=== PATIENT | female | born 1945 | race Caucasian/White ===

== ENCOUNTER 2020-11-21 12:33 | Outpatient (RCR) | payer MEDICARE, SELFPAY ==
[2013-10-21 09:41] VITALS: BMI 42.0
[2020-11-21] MEDS: COVID-19 VACC, MRNA(PFIZER)/PF 30 MCG/0.3 ML SYRINGE IM (18:19)
[2020-12-12] MEDS: COVID-19 VACC, MRNA(PFIZER)/PF 30 MCG/0.3 ML SYRINGE IM (17:48)
== END 2021-02-20 23:59 ==
LOC: IMMUN 12:33
PROVIDERS: PCP Family Medicine; Visit Provider Family Medicine
DX: Z23 Encounter for immunization (principal)
CPT/HCPCS: 0001A; 0002A; 91300

== ENCOUNTER 2024-12-18 13:05 | Inpatient (IN) | payer MEDICARE, SELFPAY ==
[2024-12-18 13:59] VITALS: BP 134/56; PULSE 66; RESP 18; RESP 20; TEMP 36.7; O2SAT 97; BMI 40.3
--- NOTE | 2024-12-18 14:52 | NURSING ---
Pt arrived via cot at 13:25.
--- NOTE | 2024-12-18 15:18 | HP.PCM_ITS ---
HPI - General General Date of Admission: 12/18/24 Date of Service: 12/20/24 Chief Complaint: Here for rehabilitation. HPI Narrative MAGALI BROOKS, is a 79 Female who presents with followin12/15/2024 Admit [facility] with right knee effusion. Fall 2 days ago, right knee pain, right knee swelling, unable to lift right leg. ESR okay, CRP okay. Ortho, PT/OT for right partial quadriceps tendon rupture. SCD, Apply ice. 12/15/2024 Ortho unable to perform straight leg raise. Concern for possible extensor mechanism rupture. NWB right lower extremity. 12/16/2024 Comfortable in bed, right leg in brace. Ortho recommends conservative management for right partial quadriceps tendon rupture. PT/OT for discharge planning. 12/18/2024 Admit to TCU with debility, here for rehabilitation, strengthening, prior to discharge home with . [facility] Medical History (Updated 12/18/24 @ 15:[address] Tomás Duncan MD) History of endometrial biopsy Vitamin D deficiency Hypothyroidism Stroke Hyperlipidemia, unspecified Essential (primary) hypertension Atrial fibrillation Rupture of right quadriceps tendon Effusion, right knee Debility Home Medications ?Medication ?Instructions ?Recorded ?Last Taken ?Type levothyroxine 88 mcg tablet 88 mcg PO DAILY Thyroid Unknown History lisinopril 40 mg tablet 40 mg PO DAILY Blood pressur e 08/30/13 Unknown History pravastatin 80 mg tablet 80 mg PO QHS Cholesterol Unknown History sotalol 120 mg tablet (Betapace) 120 mg PO BID HEART 1 10/31/12 Unknown History hydralazine 25 mg tablet 25 mg PO BID HEART 12/18/24 Unknown History oxycodone 5 mg capsule 5 mg PO Q6H PAIN 12/18/24 Un known History rivaroxaban 20 mg tablet (Xarelto) 20 mg PO QPM HEART 12/18/24 Unknown History Allergy/AdvReac Type Severity Reaction Status Date / Time Penicillins Allergy Hives Verified 10/21/13 09:43 Family History (Updated 12/18/24 @ 15:[address] Tomás Duncan MD) Father Cancer Surgical History (Updated 12/18/24 @ 15:[address] Tomás Duncan MD) History of tubal ligation History of total abdominal hysterectomy and bilateral salpingo-oophorectomy History of dilatation and curettage History of removal of cyst History of colonoscopy History of cholecystectomy Social History (Updated 12/18/24 @ 15:[address] Tomás Duncan MD) household members: spouse Smoking Status: Never smoker alcohol intake: never substance use type: does not use ROS Constitutional Constitutional: Reports weakness; Denies chills, fever(s) or weight gain ENT HEENT: Denies headache(s), nasal congestion or nasal discharge Cardiovascular Cardiovascular: Denies chest pain or palpitations Respiratory/Chest Respiratory/Chest: Denies cough, excessive phlegm production or shortness of breath with exertion Gastrointestinal Gastrointestinal: Denies abdominal pain, nausea or vomiting Genitourinary Genitourinary: Denies dysuria Musculoskeletal Musculoskeletal: Reports joint pain and other Details: Right knee pain. ; Denies joint swelling Integumentary Integumentary: Denies rash or wounds Neurologic Neurologic: Denies focal weakness, numbness or tingling Psychiatric Psychiatric: Denies anxiety, auditory hallucinations, depression, homicidal ideation or suicidal ideation Vital Signs Vital Signs Vital Signs: 12/18/24 13:59 12/18/24 13:59 Temperature 98.0 F Temperature Source Temporal Pulse Rate 66 66 Pulse Rhythm Regular Pulse Strength Normal (2+) Respiratory Rate 20 H 18 Respiratory Effort Normal Non-Labored Respiratory Depth Normal Respiratory Pattern Normal Blood Pressure 134/56 H Blood Pressure Mean 82 Blood Pressure Source Monitor Blood Pressure Position Sitting Blood Pressure Location Left Arm Pulse Ox 97 97 Oxygen Delivery Method Room Air Room Air Weight Weight: 93.667 kg Body Mass Index (BMI) 40.3 Physical Exam Const alert General Appearance: cooperative HEENT normocephalic Eyes PERRL and EOMs intact bilaterally Neck supple, no JVD and no carotid bruits Resp normal respiratory effort, normal air movement and clear to auscultation bilaterally Cardio regular rate and regular rhythm GI normal to inspection, nondistended, normoactive bowel sounds, non-tender and non-distended Extremity normal capillary refill Extremity Narrative: Right knee immobilizer. General Extremity: Negative for edema Skin no rashes or lesions noted General Skin Exam: no breakdown Psych affect normal Appearance: appropriate Results Lab / Micro Data 12/19/24 08:44 12/19/24 08:44 Assessment & Plan Assessment/Plan (1) Debility: (2) Effusion, right knee: (3) Rupture of right quadriceps tendon: (4) Atrial fibrillation: (5) Essential (primary) hypertension: (6) Hyperlipidemia, unspecified: (7) Stroke: (8) Hypothyroidism: (9) Vitamin D deficiency: PLAN: Plan 79 year old female with below past medical history hospitalized for right knee pain, right knee effusion, right partial quadriceps tendon rupture, treated non- surgically, admitted to TCU with debility, here for rehabiltation, strengthening, prior to discharge home with . * Debility - PT/OT. * Pain - Tylenol 1000mg q8, Tramadol 50mg q6 prn pain (1-5), Oxycodone 5mg q4 prn pain (6-10). * Bowel - senna/colace 2 tablets bid, Magnesium citrate 300mL po daily prn. * Adult immunization - Administer pneumonia vaccine, covid vaccine, flu vaccine as appropriate. * DVT prophylaxis - on Xarelto. * Hypertension - Sotalol 120mg bid, Lisinopril 40mg daily, Hydralazine 25mg bid. * Atrial fibrillation - Sotalol 120mg bid, Xarelto 20mg daily. * Hypothyroidism - Levothyroxine 88mcg daily. * Hyperlipidemia - Pravastatin 80mg qhs. * Bacterial vaginosis - Foul fishy vaginal odor, Flagyl 500mg po bid x 7 days.
[2024-12-18] MEDS: Acetaminophen 500 MG Tablet 1000 MG PO ×2 (15:55→21:45)
[2024-12-18] MEDS: Senna/Docusate Sodium 1 Tablet 2 TABLET PO (15:55)
[2024-12-18] MEDS: Rivaroxaban 20 MG Tablet PO (16:29)
[2024-12-18 21:44] VITALS: BP 119/56; PULSE 72
[2024-12-18] MEDS: hydrALAZINE 25 MG Tablet PO (21:44)
[2024-12-18] MEDS: Pravastatin 80 MG Tablet PO (21:45)
[2024-12-18] MEDS: Sotalol Hydrochloride 80 MG Tablet 120 MG PO (21:45)
[2024-12-19] MEDS: Levothyroxine 88 MCG Tablet PO (05:41)
[2024-12-19] MEDS: Acetaminophen 500 MG Tablet 1000 MG PO ×3 (05:41→21:19)
[2024-12-19 08:55] LABS: Absolute Lymphocyte Count 1.65 X10^3/uL (0.83-4.51); Basophil# 0.03 X10^3/uL; Basophil% 0.5 % (0-1); Eosinophil# 0.04 X10^3/uL; Eosinophils% 0.6 % (0-5); Hematocrit 42.4 % (37-47); Hemoglobin 13.5 g/dL (12.0-15.0); Lymphocyte # 1.65 X10^3/ul (0.83-4.51); Lymphocyte % 26.7 % (19-41); Mean Corp Hgb Conc 31.8 g/dL (32-36); Mean Corpuscular Hgb 29.6 pg (27.0-32.0); Mean Platelet Vol. 9.9 fl (6.2-12.0); Monocyte# 0.44 X10^3/uL; Monocyte% 7.1 % (0-10); NRBC Flagged by Analyzer 0 % (0-5); Neutrophil # 3.97 X10^3/uL (2.7-7.7); Neutrophil % 64.3 % (47-70); Platelet Count 175 K/mm3 (150-450); RBC Distribution Width CV 14.5 % (11.6-14.6); RBC Distribution Width SD 49.3 fl (35.1-43.9); Red Blood Count 4.56 M/mm3 (4.2-5.4); White Blood Count 6.2 K/mm3 (4.4-11.0)
[2024-12-19 09:23] LABS: Anion Gap 10 (5-15); BUN 33 mg/dL (4-19); BUN/Creat Ratio 32.8 RATIO (10-20); Carbon Dioxide 20.6 mmol/L (21.0-32.0); Chloride 107 mmol/L (98-108); Creatinine, Serum 0.99 mg/dL (0.70-1.20); EST Glomerular Filtration Rate 58 (>60); Estimated Creatinine Clearance 47.88 ml/min (50-250); Glucose 131 mg/dL (70-99); Potassium 4.1 mmol/L (3.3-5.1); Sodium Level 138 mmol/L (133-145)
[2024-12-19 09:25] VITALS: BP 142/51; PULSE 70
[2024-12-19] MEDS: hydrALAZINE 25 MG Tablet PO ×2 (09:25→21:19)
[2024-12-19] MEDS: Sotalol Hydrochloride 80 MG Tablet 120 MG PO ×2 (09:26→21:19)
[2024-12-19] MEDS: Lisinopril 40 MG Tablet PO (09:27)
[2024-12-19] MEDS: Tuberculin,Purif.prot.deriv. 50 TU/ML Vial 0.1 ML ID (09:36)
[2024-12-19 09:42] VITALS: BP 142/51; PULSE 70; RESP 18; TEMP 36.1; O2SAT 98
[2024-12-19] MEDS: Rivaroxaban 20 MG Tablet PO (16:57)
--- NOTE | 2024-12-19 18:52 | NURSING ---
PT DAUGHTERS GAVE MONEY FOR PT TO HAVE HER HAIR DONE ON FRIDAY. DAUGHTERS DIDNT WANT PT TO KNOW TILL THAT TIME. WANTED IT FOR A SURPRISE FOR THERE MOM. MONEY IS IN MED BOX.
[2024-12-19 21:17] VITALS: BP 141/56; PULSE 74; RESP 16; O2SAT 97
[2024-12-19 21:19] VITALS: BP 141/56; PULSE 74
[2024-12-19] MEDS: Pravastatin 80 MG Tablet PO (21:19)
[2024-12-20] MEDS: Acetaminophen 500 MG Tablet 1000 MG PO ×3 (05:25→21:25)
[2024-12-20] MEDS: Levothyroxine 88 MCG Tablet PO (05:25)
[2024-12-20] MEDS: metroNIDAZOLE 500 MG Tablet PO ×2 (08:57→21:24)
[2024-12-20] MEDS: Sotalol Hydrochloride 80 MG Tablet 120 MG PO ×2 (08:57→21:23)
[2024-12-20] MEDS: Lisinopril 40 MG Tablet PO (08:58)
[2024-12-20 08:59] VITALS: BP 127/65; PULSE 75
[2024-12-20] MEDS: Senna/Docusate Sodium 1 Tablet 2 TABLET PO (08:59)
[2024-12-20] MEDS: hydrALAZINE 25 MG Tablet PO ×2 (08:59→21:22)
[2024-12-20 09:04] VITALS: BP 127/65; PULSE 75; RESP 16; TEMP 36.4; O2SAT 98
--- NOTE | 2024-12-20 09:20 | NURSING ---
Offered covid vaccine, VIS provided. Resident declines at this time.
--- NOTE | 2024-12-20 10:38 | PCM.PN.DRR ---
Documented by User: Sheyla Winters 12/20/24 10:54 TCU RX Drug Regimen Review Subjective/Objective Subjective/Objective Subjective: TCU Admission. 79 YOF presented to outside ER with right knee effusion. Hospitalized for right knee pain, right knee effusion, right partial quadriceps tendon rupture, treated non-surgically. Admitted to TCU with debility for strengthening and rehabilitation. Objective: Allergies Penicillins Allergy (Verified 10/21/13 09:43) Hives Current Medications Generic Name Dose Route Start Last Admin Trade Name Freq PRN Reason Stop Dose Admin Acetaminophen 1,000 mg 12/18/24 15:30 12/20/24 05:25 Acetaminophen 500 Mg Tablet PO 1,000 mg Q8 MEREDITH Administration Hydralazine HCl 25 mg 12/18/24 22:00 12/20/24 08:59 Hydralazine 25 Mg Tablet PO 25 mg BID MEREDITH Administration Protocol Levothyroxine Sodium 88 mcg 12/19/24 06:00 12/20/24 05:25 Levothyroxine 88 Mcg Tablet PO 88 mcg DAILY@0600 MEREDITH Administration Lisinopril 40 mg 12/19/24 10:00 12/20/24 08:58 Lisinopril 40 Mg Tablet PO 40 mg DAILY MEREDITH Administration Protocol Magnesium Citrate 300 ml 12/18/24 15:28 Magnesium Citrate 300 Ml PO DAILY PRN Constipation Metronidazole 500 mg 12/20/24 10:00 12/20/24 08:57 Metronidazole 500 Mg Tablet PO 12/27/24 10:01 500 mg BID MEREDITH Administration Oxycodone HCl 5 mg 12/18/24 15:28 Oxycodone 5 Mg Tablet PO Q4H PRN PRN Pain Score 6-10 or Pre PT/OT Pravastatin Sodium 80 mg 12/18/24 22:00 12/19/24 21:19 Pravastatin 80 Mg Tablet PO 80 mg QHS MEREDITH Administration Rivaroxaban 20 mg 12/18/24 17:00 12/19/24 16:57 Rivaroxaban 20 Mg Tablet PO 20 mg DINNER MEREDITH Administration Senna/Docusate Sodium 2 tablet 12/18/24 15:30 12/20/24 08:59 Senna/Docusate Sodium 1 Tablet PO 2 tablet BID MEREDITH Administration Sodium Chloride 10 - 40 ml 12/18/24 14:34 0.9% Saline Lock 10 Ml Syringe IV UD PRN SALINE FLUSH Sotalol HCl 120 mg 12/18/24 22:00 12/20/24 08:57 Sotalol Hydrochloride 80 Mg Tablet PO 120 mg BID MEREDITH Administration Tramadol HCl 50 mg 12/18/24 15:27 Tramadol 50 Mg Tablet PO Q6H PRN PRN Pain Score 1-5 Tuberculin PPD 0.1 ml 12/26/24 10:00 Tuberculin,Purif.Prot.Deriv. 50 Tu/Ml Vial ID 12/26/24 10:01 X1 ONE Problem List (Updated 12/18/24 @ 15:[address] Tomás Duncan MD) Vitamin D deficiency (Acute) Hypothyroidism (Acute) Stroke (Acute) Hyperlipidemia, unspecified (Acute) Essential (primary) hypertension (Acute) Atrial fibrillation (Acute) Rupture of right quadriceps tendon (Acute) Effusion, right knee (Acute) Debility (Acute) Vital Signs Temp Pulse Resp BP Pulse Ox O2 Del Method 97.6 F L 75 16 127/65 H 98 Room Air 12/20/24 09:04 12/20/24 09:04 12/20/24 09:04 12/20/24 09:04 12/20/24 09:04 12/20/24 09:04 Oxygen Delivery Method Room Air Weight: 93.7 kg Body Mass Index (BMI) 40.3 Sodium 138 mmol/L (133-145) 12/19/24 08:44 Potassium 4.1 mmol/L (3.3-5.1) 12/19/24 08:44 Chloride 107 mmol/L (98-108) 12/19/24 08:44 Carbon Dioxide 20.6 mmol/L (21.0-32.0) L 12/19/24 08:44 Anion Gap 10 (5-15) 12/19/24 08:44 BUN 33 mg/dL (4-19) H 12/19/24 08:44 Creatinine 0.99 mg/dL (0.70-1.20) 12/19/24 08:44 Est GFR (MDRD) Non-Af 58 (>60) L 12/19/24 08:44 BUN/Creatinine Ratio 32.8 RATIO (10-20) H 12/19/24 08:44 Glucose 131 mg/dL (70-99) H 12/19/24 08:44 Assessment/Plan: 1. Pain: acetaminophen 1000mg PO Q8, tramadol 50mg PO Q6H PRN pain 1-5 and oxycodone 5mg PO Q4H PRn pain 6-10. Resident has not had any PRN doses. Please continue to monitor for PRN usage and increased pain. 2. Bowel: senna/docusate 2T PO BID and magnesium citrate 300mL PO daily PRN constipation. No PRN doses given. Please continue to monitor for PRN usage and constipation. Last documented bowel movement was 12/17/24. 3. Hypertension/atrial fibrillation: sotalol 120mg PO BID, lisinopril 40mg PO daily, hydralazine 25mg PO BID and rivaroxaban 15mg PO dinner (dose changed per policy due to CrCl 47mL/min). Please continue to monitor for S/S of bleeding/stroke, BP (last 127/65), HR (last 75), renal function, cough, potassium (last 4.1mmol/L). 4. Hypothyroidism: levothyroxine 88mcg PO daily. Please consider ordering a TSH as the last in the chart is from 2012. Thanks. Please continue to monitor for S/S of hypothyroidism. 5. Hyperlipidemia: pravastatin 80mg PO QHS. Please consider ordering a lipid panel and LFTs as the last are from 2012. Thanks. Please continue to monitor for muscle pain. 6. Bacterial vaginosis: metronidazole 500mg PO BID thru 12/27/24. Please continue to monitor for improvement in symptoms, metallic taste and GI side effects. Assessment/Plan for indications treated with psychotropic medications: None Medical chart and medication regimen reviewed. The following medication irregularities or issues were identified: 1. Levothyroxine 88mcg PO daily. Please consider ordering a TSH as the last in the chart is from 2012. Thanks. 2. Pravastatin 80mg PO QHS. Please consider ordering a lipid panel and LFTs as the last are from 2012. Thanks. Date Date of Note: 12/20/24 Documented by User: Dr. Tomás Duncan MD 12/20/24 12:36 TCU RX Drug Regimen Review Provider Comments Provider responsibility Provider Comments to Recommendations by Pharmacy Agree
--- NOTE | 2024-12-20 10:47 | NURSING ---
Addendum entered by Sarah Nash 12/20/24 13:27: Call back from office, ok to remove immobilizer and shower. Follow-up scheduled for 12/31/24 at 1045. Resident believes family will be able to transport. Addendum entered by Sarah Nash 12/20/24 10:50: Updated resident. Original Note: Left VM with Dr. Vaughan's office about follow-up appt and ability to shower. Await return call.
--- NOTE | 2024-12-20 16:07 | CASEMGMT ---
Social Work SW met with pt and completed initial assessment. Contacts were verified. Pt confirmed code status as full code. Pt has a HCPOA naming her dgt [place]. SW requested copy be brought to the hosptial. Pt does not have a living will and is not interested in information at this time. SW educated pt to [facility] benefit and that NRD is 4/10 and continued stay is not guaranteed. Pt goal is to return home alone and back to independence at discharge. KEN will continue to follow for dc planning. NIURKA Ingram
[2024-12-20] MEDS: Rivaroxaban 15 MG Tablet PO (16:40)
[2024-12-20 21:17] VITALS: BP 155/71; PULSE 72
[2024-12-20 21:22] VITALS: BP 155/71; PULSE 72
[2024-12-20] MEDS: Pravastatin 80 MG Tablet PO (21:25)
[2024-12-21] VITALS (7 sets, daily range): BP systolic 118–141; BP diastolic 60–68; PULSE 68–78; RESP 16–17; TEMP 36.6–36.8; O2SAT 96–97; BMI 40.7
[2024-12-21] MEDS: Acetaminophen 500 MG Tablet 1000 MG PO ×3 (05:36→21:02)
[2024-12-21] MEDS: Levothyroxine 88 MCG Tablet PO (05:36)
[2024-12-21] MEDS: Senna/Docusate Sodium 1 Tablet 2 TABLET PO (09:25)
[2024-12-21] MEDS: Sotalol Hydrochloride 80 MG Tablet 120 MG PO ×2 (09:26→21:00)
[2024-12-21] MEDS: hydrALAZINE 25 MG Tablet PO ×2 (09:27→21:01)
[2024-12-21] MEDS: metroNIDAZOLE 500 MG Tablet PO ×2 (09:28→21:01)
[2024-12-21] MEDS: Lisinopril 40 MG Tablet PO (09:29)
[2024-12-21 12:00] LABS: Cholesterol 194 mg/dL (<=200); High Density Lipoprotein 62 mg/dL; Low Density Lipoprotein Calc. 95 mg/dL; Triglycerides 187 mg/dL; Very Low Density Lipoprotein 37 mg/dL (5-40); cholesterol:hdl ratio screen 3.14
--- NOTE | 2024-12-21 15:39 | CHAPLAIN ---
Type of Pastoral Visit ___ Initial Visit ___ Follow-up Visit ___ On-call Visit ___ General Patient Visit ___ Spiritual Assessment ___ Family Conference ___ Bereavement ___ Rapid Response ___ Code Blue ___ Other (describe below) Pastoral Care Referral From ___ Patient ___ Family ___ Nurse ___ Physician ___ Yarn Tester ___ [place]ak Worker ___ Other (describe below) Sacrament/Intervention ___ Active listening ___ Anointing ___ Confucianist ___ Bereavement ___ Communion ___ Ofelia exploration ___ ___ Life review ___ Prayer ___ Reconciliation ___ Sacrament of Sick ___ Supportive presence ___ Wedding ___ Other (describe below) Pastoral Comments patient has visitors so this was a brief encounter; pt states that she is improving and has new freedoms to walk around in her room which she is grateful; offer of another day to visit later
[2024-12-21] MEDS: Rivaroxaban 15 MG Tablet PO (17:34)
[2024-12-21] MEDS: Pravastatin 80 MG Tablet PO (21:02)
[2024-12-21] MEDS: MELATONIN 3 MG TABLET PO (21:09)
[2024-12-22] MEDS: Levothyroxine 88 MCG Tablet PO (05:46)
[2024-12-22] MEDS: Acetaminophen 500 MG Tablet 1000 MG PO ×3 (05:46→22:15)
[2024-12-22 09:31] VITALS: BP 111/75; PULSE 77
[2024-12-22] MEDS: hydrALAZINE 25 MG Tablet PO ×2 (09:31→22:15)
[2024-12-22] MEDS: metroNIDAZOLE 500 MG Tablet PO ×2 (09:32→22:15)
[2024-12-22] MEDS: Sotalol Hydrochloride 80 MG Tablet 120 MG PO ×2 (09:32→22:15)
[2024-12-22] MEDS: Lisinopril 40 MG Tablet PO (09:33)
[2024-12-22 09:38] VITALS: BP 111/75; PULSE 77; RESP 18; TEMP 36.1; O2SAT 97
--- NOTE | 2024-12-22 10:20 | CASEMGMT ---
Social Work IDT met with patient, dtr at bedside and other dtr via conference call for care plan meeting. Discussed patient's progress in PT/OT/SN. Educated to [facility] insurance with NRD 12/23 and continued stay is not guaranteed with each review. [facility] is requesting DC plans are in place at NRD for possible LCD. Provided pt/family with written communication of insurance process and copay coverage during stay. Pt is adlib after morning ADLs w/FWW. SW inquired about DC plans as EDC would be 12/26. Family expressed concern with pt being able to complete entry steps, LE care and tx. Therapy reported pt can complete 6 steps, use AE for LE care and is independent with tx. SW discussed resources in the home and DME needs. Pt will need a FWW and 3-in-1 commode. SW provided resources for life alert, home delivered meals and grab bars. Educated to skilled HHC at DC to assist with home set up modifications/recommendations and transition home. Then pt can transition to OP therapy, if elected. Accounts Adjustable Clerk nd dtr's agreeable and appreciative to suggestions. Pt has not used HHC prior. SW to provide list of options. SW educated HHC agency will contact pt for SOC date date, but typically 2-3 days after DC, pending PCP signing orders. Pt/dtrs expressed understanding. SW to notify pt with outcome of insurance update. SW will continue to follow for DC planning. Vangie Mayberry CERTIFIED ACTIVITIES DIRECTOR HYGIENE TEACHER
[2024-12-22] MEDS: Rivaroxaban 15 MG Tablet PO (16:54)
[2024-12-22 22:12] VITALS: BP 151/68; PULSE 71; RESP 16; O2SAT 98
[2024-12-22 22:15] VITALS: BP 151/68; PULSE 71
[2024-12-22] MEDS: MELATONIN 3 MG TABLET PO (22:15)
[2024-12-22] MEDS: Pravastatin 80 MG Tablet PO (22:16)
[2024-12-23] MEDS: Levothyroxine 88 MCG Tablet PO (05:23)
[2024-12-23] MEDS: Acetaminophen 500 MG Tablet 1000 MG PO ×3 (05:24→20:46)
[2024-12-23 09:04] VITALS: BP 148/55; PULSE 87
[2024-12-23] MEDS: hydrALAZINE 25 MG Tablet PO ×2 (09:04→20:47)
[2024-12-23] MEDS: Lisinopril 40 MG Tablet PO (09:05)
[2024-12-23] MEDS: metroNIDAZOLE 500 MG Tablet PO ×2 (09:05→20:46)
[2024-12-23] MEDS: Sotalol Hydrochloride 80 MG Tablet 120 MG PO ×2 (09:05→20:46)
[2024-12-23] MEDS: Senna/Docusate Sodium 1 Tablet 2 TABLET PO (09:05)
[2024-12-23] MEDS: traMADol 50 MG Tablet PO (09:10)
[2024-12-23 09:12] VITALS: BP 148/55; PULSE 87; RESP 18; TEMP 36.1; O2SAT 98
--- NOTE | 2024-12-23 09:19 | NURSING ---
PT COMPLAINING OF DRY,BLOODY NOSE. PT STATED SHE USES NOSE SPRAY AT HOME. LEFT NOTE FOR FOR NOSE SPRAY.
--- NOTE | 2024-12-23 10:54 | CASEMGMT ---
Addendum entered by Vangie Mayberry 12/24/24 13:14: [facility] can accept but for PT and KEEN - there is no OT in the area. Addendum entered by Vangie Mayberry 12/24/24 08:49: Referral sent to [facility] via [employer]. Original Note: Social Work Insurance issued LCD 12/25, DC 12/26. SW provided NOMNC to pt and educated to appeal rights. Pt verbalized understanding and denied appeal. Pt is agreeable to DC. Though, did express some concerns with a car tx, which pt is practicing today with therapy. Pt explained transport can be scheduled, if needed, and HHC will continue working on car tx. SW provided list of skilled HHC agencies within geographical area, INN with insurance, that include quality and resource data via [employer] guide. Pt to review and notify this worker of preference. SW educated HHC agency will contact pt for SOC date date, but typically 2-3 days after DC, pending PCP signing orders. Pt expressed understanding. SW confirmed FWW and 3-in-1 commode. The DME will be delivered to pt's room prior to DC. Pt will have dtr transport home, if the car tx is successful. KEN completed BIMS () and PHQ-2 () for MDS assessment. - KEN referred to [employer] via [employer] for FWW and 3-in-1 commode. Plan: DC home alone 12/26, C PT/OT/KEEN, FWW, 3-in-1 commode Vangie Mayberry OBJECT ORIENTED PROGRAMMER LEGAL NURSE CONSULTANT
--- NOTE | 2024-12-23 12:18 | NURSING ---
Banquet Set Up Person Note; Activity Asset: Laz Powell is independent in her choice of daily activities. She enjoy dominos, quilting, spending time w/mormonism family, reading , tv, music, just hanging out w/others. Family and friends will visit and bring her items she may need or want. Staff will encourage social activities, group and independent activities weekly. Staff will respect her right to say no.
--- NOTE | 2024-12-23 15:53 | CHAPLAIN ---
Type of Pastoral Visit ___ Initial Visit _x__ Follow-up Visit ___ On-call Visit ___ General Patient Visit ___ Spiritual Assessment ___ Family Conference ___ Bereavement ___ Rapid Response ___ Code Blue ___ Other (describe below) Pastoral Care Referral From _x__ Patient ___ Family ___ Nurse ___ Physician ___ Electric Serviceman ___ Practice Assistant ___ Other (describe below) Sacrament/Intervention _x__ Active listening ___ Anointing ___ Catholic ___ Bereavement ___ Communion _x__ Ofelia exploration ___ _x__ Life review _x__ Prayer ___ Reconciliation ___ Sacrament of Sick _x__ Supportive presence ___ Wedding ___ Other (describe below) Pastoral Comments follow up visit after a very brief encounter earlier this week; pt is talkative and shares her feelings about going home this weekend; those feelings include some apprehension about navigating well at home; pt does have family support but knows that they are also busy with lives too; patient also acknowledges that she has had two significant deaths in less than two years with her and a grandson; approached patient with questions of coping and compassion; prayer given
[2024-12-23] MEDS: Rivaroxaban 15 MG Tablet PO (16:51)
--- NOTE | 2024-12-23 19:53 | DS.PCM_ITS ---
Providers Date of Admission: 12/18/24 Primary Care Physician: Dr. Lenin Ramírez DO Reason For Visit: RIGHT PARTIAL TENDON RUPTURE Diagnosis Discharge Diagnosis (1) Debility: Status: Acute Code(s): R53.81 - Other malaise (2) Effusion, right knee: Status: Acute Code(s): M25.461 - Effusion, right knee (3) Rupture of right quadriceps tendon: Status: Acute Code(s): S76.111A - Strain of right quadriceps muscle, fascia and tendon, initial encounter (4) Atrial fibrillation: Status: Acute Code(s): I48.91 - Unspecified atrial fibrillation (5) Essential (primary) hypertension: Status: Acute Code(s): I10 - Essential (primary) hypertension (6) Hyperlipidemia, unspecified: Status: Acute Code(s): E78.5 - Hyperlipidemia, unspecified (7) Stroke: Status: Acute Code(s): I63.9 - Cerebral infarction, unspecified (8) Hypothyroidism: Status: Acute Code(s): E03.9 - Hypothyroidism, unspecified (9) Vitamin D deficiency: Status: Acute Code(s): E55.9 - Vitamin D deficiency, unspecified Plan 79 year old female with below past medical history hospitalized for right knee pain, right knee effusion, right partial quadriceps tendon rupture, treated non- surgically, admitted to TCU with debility, here for rehabiltation, strengthening, prior to discharge home with . * Debility - PT/OT. * Pain - Tylenol 1000mg q8, Tramadol 50mg q6 prn pain (1-5), Oxycodone 5mg q4 prn pain (6-10). * Bowel - senna/colace 2 tablets bid, Magnesium citrate 300mL po daily prn. * Adult immunization - Administer pneumonia vaccine, covid vaccine, flu vaccine as appropriate. * DVT prophylaxis - on Xarelto. * Hypertension - Sotalol 120mg bid, Lisinopril 40mg daily, Hydralazine 25mg bid. * Atrial fibrillation - Sotalol 120mg bid, Xarelto 20mg daily. * Hypothyroidism - Levothyroxine 88mcg daily. * Hyperlipidemia - Pravastatin 80mg qhs. * Bacterial vaginosis - Foul fishy vaginal odor, Flagyl 500mg po bid x 7 days. Medications at Discharge Home Medications levothyroxine 88 mcg tablet 88 mcg PO DAILY Thyroid 08/30/13 lisinopril 40 mg tablet 40 mg PO DAILY Blood pressure 08/30/13 pravastatin 80 mg tablet 80 mg PO QHS Cholesterol 08/30/13 sotalol 120 mg tablet (Betapace) 120 mg PO BID HEART 08/30/13 hydralazine 25 mg tablet 25 mg PO BID HEART 12/18/24 rivaroxaban 20 mg tablet (Xarelto) 20 mg PO QPM HEART 12/18/24 acetaminophen 500 mg tablet 1,000 mg (2 x 500 mg) PO Q8 #0 tabs 12/23/24 melatonin 3 mg tablet 3 mg PO QHS #0 tabs 12/23/24 tramadol 50 mg tablet 50 mg PO Q6H PRN PRN Pain Score 1-5 7 days #28 tabs 12/23/24 Hospital Course Operations None Procedures None Summary of Care Provided Minutes Spent on Discharge: 35 Hospital Course: 79 year old female with below past medical history hospitalized for right knee pain, right knee effusion, right partial quadriceps tendon rupture, treated non- surgically, admitted to TCU with debility, here for rehabiltation, strengthening, prior to discharge home alone. Discharge home alone 12/26/2024, [facility] PT/OT/KEEN, FWW, 3-in-1 commode. FWW: Patient is unsafe to use a cane and requires a walker for ambulation in the home and the community. 3-in-1 commode: a. Patient is confined to a siingle room unable to safely access toilet. b. Patient is confined to one level of the home environment and there is no toilet on that level. Physical Exam Const alert General Appearance: cooperative HEENT normocephalic Eyes PERRL and EOMs intact bilaterally Neck supple, no JVD and no carotid bruits Resp normal respiratory effort, normal air movement and clear to auscultation bilaterally Cardio regular rate and regular rhythm GI normal to inspection, nondistended, normoactive bowel sounds, non-tender and non-distended Extremity normal capillary refill Extremity Narrative: Right knee immobilizer. General Extremity: Negative for edema Skin no rashes or lesions noted General Skin Exam: no breakdown Psych affect normal Appearance: appropriate Weight / BMI Weight Weight: 94.075 kg Body Mass Index (BMI) 40.7 ABG / Lab / Microbiology Data 12/19/24 08:44 12/19/24 08:44 D/C Instructions Discharge Diet: No restrictions Discharge Activity: Return to Normal Activity, May Shower and Use Walker Weight Bearing Status: Weight bearing as tolerated Call your doctor if you observe: Fever of 101 or Higher, Inability to urinate, Inability to have a bowel movement, Shortness of breath, Dizziness, Fainting spells, Swelling in the ankles, Chest pain and Uncontrolled pain DC O2, CPAP, BIPAP Needs Home O2 Discharge instructions: No Additional Instructions: Discharge home alone 12/26/2024, [facility] PT/OT/KEEN, FWW, 3-in-1 commode. FWW: Patient is unsafe to use a cane and requires a walker for ambulation in the home and the community. 3-in-1 commode: a. Patient is confined to a siingle room unable to safely access toilet. b. Patient is confined to one level of the home environment and there is no toilet on that level. Please Follow Up With: Elias Vaughan MD When: As scheduled. Meaningful Use Info Meaningful Use Meaningful Use Diagnoses (Choose all that apply): None applicable Ischemic Stroke Statin Dosing Therapy Reference: STATIN DOSE THERAPY REFERENCE: * Patients > 75 years receive moderate or high dose statin therapy. * Patients 75 years or YOUNGER should receive HIGH intensity statin dose unless contraindicated. You will be required to document reason for non-treatment if statin daily dose does not meet guidelines. HIGH DOSE STATIN THERAPY DAILY Atorvastatin > than or = to 40 mg Rosuvastatin > than or = to 20 mg Amlodipine + Atorvastatin > than or = to 2.5/40 mg Ezetimibe + Simvastatin 10/80 mg Simvastatin 80mg Discharge Plan Admission Admit Date/Time: 12/18/24 13:05 Primary Reason for Your Visit: Debility. Attending Provider: Tomás Duncan Chi Primary Care Provider: Lenin Ramírez Instructions Additional Instructions / Restrictions: Discharge home alone 12/26/2024, [facility] PT/OT/KEEN, FWW, 3-in-1 commode. FWW: Patient is unsafe to use a cane and requires a walker for ambulation in the home and the community. 3-in-1 commode: a. Patient is confined to a siingle room unable to safely access toilet. b. Patient is confined to one level of the home environment and there is no toilet on that level. Discharge Orders/Prescriptions Prescriptions: New acetaminophen 500 mg Tablet 1,000 mg PO Q8 Qty: 0 0RF melatonin 3 mg Tablet 3 mg PO QHS Qty: 0 0RF tramadol 50 mg Tablet 50 mg PO Q6H PRN PRN (Reason: Pain Score 1-5) 7 Days Qty: 28 0RF Continued sotalol [Betapace] 120 MG tablet 120 mg PO BID levothyroxine 88 MCG tablet 88 mcg PO DAILY pravastatin 80 MG tablet 80 mg PO QHS lisinopril 40 MG tablet 40 mg PO DAILY hydralazine 25 mg tablet 25 mg PO BID Xarelto 20 mg tablet 20 mg PO QPM Discontinued oxycodone 5 mg capsule 5 mg PO Q6H Rx Instructions: Take 1 tablet (5mg) by mouth every 6 hours as needed for severe pain (7-10) Referrals / Follow Up: Lenin Ramírez DO [Primary Care Provider] - 12/28/24 10:20 am (Will see JORGE Yoder) Elias Vaughan MD [Non-Staff] - 12/31/24 10:45 am Disposition Disposition (needs filled in before D/C Order can be placed): Home Health Service
[2024-12-23] MEDS: MELATONIN 3 MG TABLET PO (20:46)
[2024-12-23] MEDS: Pravastatin 80 MG Tablet PO (20:46)
[2024-12-23 20:47] VITALS: BP 128/58; PULSE 68
[2024-12-23] MEDS: Sodium Chloride 0.65% 1 SPRAY SPRAY.BTL 2 SPRAY NASAL (20:51)
[2024-12-24] MEDS: Acetaminophen 500 MG Tablet 1000 MG PO ×3 (05:44→22:05)
[2024-12-24] MEDS: Levothyroxine 88 MCG Tablet PO (05:45)
[2024-12-24] MEDS: Lisinopril 40 MG Tablet PO (08:39)
[2024-12-24 08:40] VITALS: BP 106/64; PULSE 65
[2024-12-24] MEDS: hydrALAZINE 25 MG Tablet PO ×2 (08:40→22:06)
[2024-12-24] MEDS: Sotalol Hydrochloride 80 MG Tablet 120 MG PO ×2 (08:41→22:06)
[2024-12-24] MEDS: metroNIDAZOLE 500 MG Tablet PO ×2 (08:41→22:05)
--- NOTE | 2024-12-24 10:03 | MDS.RN ---
Pain assessment for MDS complete.
[2024-12-24 14:52] VITALS: BP 122/49; PULSE 61; RESP 16; TEMP 36.6; O2SAT 98
[2024-12-24] MEDS: Rivaroxaban 15 MG Tablet PO (16:15)
[2024-12-24] MEDS: Pravastatin 80 MG Tablet PO (22:05)
[2024-12-24] MEDS: Senna/Docusate Sodium 1 Tablet 2 TABLET PO (22:05)
[2024-12-24 22:06] VITALS: BP 148/60; PULSE 70
[2024-12-24] MEDS: MELATONIN 3 MG TABLET PO (22:06)
[2024-12-24] MEDS: Sodium Chloride 0.65% 1 SPRAY SPRAY.BTL 2 SPRAY NASAL (22:10)
[2024-12-25] MEDS: Acetaminophen 500 MG Tablet 1000 MG PO ×3 (06:00→22:17)
[2024-12-25] MEDS: Levothyroxine 88 MCG Tablet PO (06:00)
[2024-12-25] MEDS: Senna/Docusate Sodium 1 Tablet 2 TABLET PO (08:41)
[2024-12-25] MEDS: Lisinopril 40 MG Tablet PO (08:41)
[2024-12-25] MEDS: metroNIDAZOLE 500 MG Tablet PO ×2 (08:41→22:18)
[2024-12-25] MEDS: Sotalol Hydrochloride 80 MG Tablet 120 MG PO ×2 (08:41→22:17)
[2024-12-25 08:42] VITALS: BP 114/54; PULSE 71
[2024-12-25] MEDS: hydrALAZINE 25 MG Tablet PO ×2 (08:42→22:17)
[2024-12-25 09:49] VITALS: BP 114/54; PULSE 71; RESP 18; TEMP 36.6; O2SAT 98
[2024-12-25] MEDS: Rivaroxaban 15 MG Tablet PO (17:16)
[2024-12-25 22:17] VITALS: BP 148/76; PULSE 80
[2024-12-25] MEDS: Pravastatin 80 MG Tablet PO (22:17)
[2024-12-25] MEDS: MELATONIN 3 MG TABLET PO (22:18)
[2024-12-26 06:21] LABS: Absolute Lymphocyte Count 2.28 X10^3/uL (0.83-4.51); Absolute Neutrophil Count 3.5 X10^3/uL (2.0-7.7); Basophil# 0.04 X10^3/uL; Basophil% 0.6 % (0-1); Eosinophil# 0.03 X10^3/uL; Eosinophils% 0.4 % (0-5); Hematocrit 38.5 % (37-47); Hemoglobin 12.7 g/dL (12.0-15.0); Lymphocyte # 2.28 X10^3/ul (0.83-4.51); Lymphocyte % 33.5 % (19-41); Mean Corpuscular Volume 90.8 fL (81-99); Mean Platelet Vol. 9.5 fl (6.2-12.0); Monocyte# 0.87 X10^3/uL; Monocyte% 12.8 % (0-10); NRBC Flagged by Analyzer 0 % (0-5); Neutrophil # 3.51 X10^3/uL (2.7-7.7); Neutrophil % 51.7 % (47-70); Platelet Count 162 K/mm3 (150-450); RBC Distribution Width CV 14.7 % (11.6-14.6); RBC Distribution Width SD 49.7 fl (35.1-43.9); Red Blood Count 4.24 M/mm3 (4.2-5.4); White Blood Count 6.8 K/mm3 (4.4-11.0)
[2024-12-26] MEDS: Levothyroxine 88 MCG Tablet PO (06:42)
[2024-12-26] MEDS: Acetaminophen 500 MG Tablet 1000 MG PO (06:42)
[2024-12-26 07:17] LABS: Anion Gap 8 (5-15); BUN 32 mg/dL (4-19); BUN/Creat Ratio 36.6 RATIO (10-20); Calcium,Total 8.8 mg/dL (7.6-11.0); Carbon Dioxide 19.2 mmol/L (21.0-32.0); Chloride 109 mmol/L (98-108); Creatinine, Serum 0.88 mg/dL (0.70-1.20); EST Glomerular Filtration Rate 68 (>60); Estimated Creatinine Clearance 54.01 ml/min (50-250); Glucose 102 mg/dL (70-99); Potassium 4.5 mmol/L (3.3-5.1); Sodium Level 136 mmol/L (133-145)
[2024-12-26] MEDS: metroNIDAZOLE 500 MG Tablet PO (08:30)
[2024-12-26 08:31] VITALS: BP 112/50; PULSE 74
[2024-12-26] MEDS: Sotalol Hydrochloride 80 MG Tablet 120 MG PO (08:31)
[2024-12-26] MEDS: hydrALAZINE 25 MG Tablet PO (08:31)
[2024-12-26] MEDS: Lisinopril 40 MG Tablet PO (08:32)
[2024-12-26 10:04] VITALS: BP 114/63; PULSE 74; RESP 18; TEMP 36.7; O2SAT 98
--- NOTE | 2024-12-29 11:23 | MDS.RN ---
Information for the MDS was obtained from review of the clinical record, interview of resident, staff, and direct observation of resident?s care.
== END 2024-12-26 11:11 | disposition home health service (06) | DRG 565 ==
PROVIDERS: Admitting Provider Family Medicine Geriatric Medicine; PCP Family Medicine; Visit Provider Family Medicine Geriatric Medicine
DX: M25.461 Effusion, right knee (principal); I48.20 Chronic atrial fibrillation, unspecified; Z68.41 Body mass index [BMI] 40.0-44.9, adult; B96.89 Other specified bacterial agents as the cause of diseases classified elsewhere; E03.9 Hypothyroidism, unspecified; I10 Essential (primary) hypertension; E66.01 Morbid (severe) obesity due to excess calories; E55.9 Vitamin D deficiency, unspecified; E78.5 Hyperlipidemia, unspecified; W19.XXXD Unspecified fall, subsequent encounter; S76.111D Strain of right quadriceps muscle, fascia and tendon, subsequent encounter; Z79.891 Long term (current) use of opiate analgesic; Z79.890 Hormone replacement therapy; N76.0 Acute vaginitis; G47.00 Insomnia, unspecified; Z79.899 Other long term (current) drug therapy
CPT/HCPCS: 36415; 80048; 80061; 84443; 85025; 97110; 97116; 97162; 97165; 97530; 97535; 97802